=== PATIENT | male | born 1985 | race Caucasian/White ===

== ENCOUNTER 2017-04-14 20:43 | Inpatient (IN) | payer OTHER ==
--- NOTE | ~2017-04-14 | HP ---
History And Physical [address] [place]. [address] NAME: SWETA VERGARA : 87 STATUS : ADM IN [facility]#: [id number] AGE: 31 ADM/REG DATE : 04/15/17 MR#: [id number] REPORT SERV DATE: 04/15/17 DICTATED BY: NITESH FUNEZ DATE: 04/15/17 REPORT STATUS : Draft TRANSCRIBED BY: MODJaved DATE: 04/15/17 DATE OF ADMISSION: 04/15/2017 HISTORY OF PRESENT ILLNESS: The patient is a 31-year-old white male who has been having almost continuous chest pain over the past three months. The chest pain is substernal and not associated with physical exertion. The patient apparently states his pain got worse yesterday and he has some associated nausea and sweating with it. He presented to the emergency room at [facility] where cardiac workup was unremarkable. At the time of this admission, the patient did not tell the emergency room physician that he had a cardiac catheterization at [facility], [place] just a year ago which was normal. Cardiac enzymes remain normal and EKG is unremarkable. PAST MEDICAL HISTORY: Remarkable for cholecystectomy, obesity, and sleep apnea. SOCIAL HISTORY: The patient does not smoke. FAMILY HISTORY: Positive for coronary artery disease (father). REVIEW OF SYSTEMS: The patient denies cough, wheeze, sputum production, vomiting, diarrhea, or dysuria. PHYSICAL EXAMINATION: VITAL SIGNS: Blood pressure is 134/75, heart rate is 88 and regular, respirations 18 and nonlabored. HEENT: Unremarkable. NECK: No jugular venous distention with good carotid upstroke. CHEST: Clear. CARDIOVASCULAR: PMI is not displaced. S1 is normal. S2 is narrowly split. No gallop is present. ABDOMEN: Soft, nontender, with normal bowel sounds. EXTREMITIES: No cyanosis, clubbing, or edema. SKIN: Warm and dry with no pallor or icterus. NEUROPSYCH: The patient is oriented x3 with appropriate affect. LABORATORY DATA: Potassium is 3.9, BUN 12, creatinine 0.91. Hematocrit 35.5. Troponin is less than 0.02. IMPRESSION: 1. Atypical chest pain with a normal cardiac catheterization a year ago at [facility], [place]. 2. Symptomatic sinus tachycardia. 3. Obesity. PLAN: 1. We will check an echocardiogram to evaluate for pericardial effusion and left ventricular function. 2. We will plan to discharge on atenolol and follow up with Dr. Carlos Eduardo Lagos for an History And Physical [address] [address] NAME: SWETA VERGARA : 87 STATUS : ADM IN PAT#: [id number] AGE: 31 ADM/REG DATE : 04/15/17 MR#: [id number] REPORT SERV DATE: 04/15/17 DICTATED BY: NITESH FUNEZ DATE: 04/15/17 REPORT STATUS : Draft TRANSCRIBED BY: MODL DATE: 04/15/17 electrophysiology evaluation if echo is unremarkable. SS/KAYODEL Nitesh Funez M.D., ChristieCOsmani / [id number] CC: iNtesh Funez M.D., ChristieCHAN RODRIGUEZ
[~2017-04-14 20:43] MED LIST: ADVIL PO; ASAB PO; KLONO1 PO; MAXIMUM D3 PO; MULTIVIT/MIN PO; NEUR100 PO; PRILO PO; PROAIR HFA INH; PROBIOTIC GUMMY PO; QUESTRAN PO; TOPXL50 PO; ZANTAC 150 PO; ZOL50 PO; ZYRTEC ALLGY10 MG PO
[2017-04-14] MEDS ORDERED: COZ25 PO (20:48)
[2017-04-14 20:57] LABS: BASOPHILS 0.5 %; BASOPHILS ABSOLUTE 0.03 10/3/uL (0.0-0.16); ER CBC TAT 0 Hrs 05 Mins; HEMATOCRIT 38.5 % (40.0-51.0); HEMOGLOBIN 13.4 g/dL (13.6-17.8); IMMATURE GRANULOCYTES 0.2 %; IMMATURE GRANULOCYTES ABSOLUTE 0.01 10/3/uL (0.0-0.11); LYMPHOCYTES 30.6 %; LYMPHOCYTES ABSOLUTE 2.01 10/3/uL (0.67-4.30); MEAN CORPUS HGB CONC 34.8 g/dL (32.0-36.0); MEAN CORPUSCULAR HEMOGLOB 32.6 pg (26.0-34.0); MEAN CORPUSCULAR VOLUME 93.7 fL (80-100); MEAN PLATELET VOLUME 9.2 fL (9.2-13.0); MONOCYTES 6.6 %; MONOCYTES ABSOLUTE 0.43 10/3/uL (0.21-1.20); NEUTROPHILS 59.1 %; NEUTROPHILS ABSOLUTE 3.88 10/3/uL (2.02-8.40); PLATELET COUNT 190 10/3/uL (150-400); RBC DISTRIBUTION WIDTH 12.9 % (12.0-16.0); RED CELL COUNT 4.11 10/6/uL (4.7-6.1); WHITE BLOOD CELLS 6.6 10/3/uL (4.5-10.5)
[2017-04-14 20:58] LABS: MANUAL DIFF NO %
[2017-04-14 21:05] LABS: PARTIAL THROMBO TIME 29.1 SEC (22.5-37.2); PROTIME (NOT ORD) 13.5 SEC (12.0-14.5)
[2017-04-14 21:14] LABS: ACETAMINOPHEN LEVEL (TYLENOL) < 2.0 MCG/ML (10.0-20.0); ALBUMIN 3.4 G/DL (3.5-5.0); ALCOHOL < 10 MG/DL (0); ALKALINE PHOSPHATASE 93 U/L (45-117); BUN (BLOOD UREA NITROGEN) 12 MG/DL (6-23); CALCIUM, SERUM 8.2 MG/DL (8.5-10.4); CHEST PAIN PROFILE TAT 0 Hrs 22 Mins; CHLORIDE, SERUM 112 MMOL/L (96-112); CO2 (CARBON DIOXIDE) 25 MMOL/L (24-34); CREATININE 0.91 MG/DL (0.70-1.30); DIRECT BILIRUBIN < 0.1 MG/DL (0.0-0.4); GFR AFRICAN AMERICAN 131 ML/MIN (>=60); GFR NON AFRICAN AMERICAN 113 ML/MIN (>=60); GLUCOSE, SERUM 129 MG/DL (60-99); POTASSIUM, SERUM 3.9 MMOL/L (3.5-5.3); SGOT(AST) 14 U/L (5-40); SGPT(ALT) 33 U/L (5-65); SODIUM, SERUM 144 MMOL/L (135-148); TOTAL BILIRUBIN 0.1 MG/DL (0-1.2); TOTAL PROTEIN 6.8 G/DL (6.0-8.5); TROPONIN I <0.02 NG/ML (<0.05)
[2017-04-15 06:49] LABS: BASOPHILS 0.3 %; BASOPHILS ABSOLUTE 0.02 10/3/uL (0.0-0.16); EOSINOPHILS 4.1 %; EOSINOPHILS ABSOLUTE 0.27 10/3/uL (0.0-0.53); HEMATOCRIT 39.1 % (40.0-51.0); HEMOGLOBIN 13.5 g/dL (13.6-17.8); IMMATURE GRANULOCYTES 0.2 %; IMMATURE GRANULOCYTES ABSOLUTE 0.01 10/3/uL (0.0-0.11); LYMPHOCYTES 44.1 %; MEAN CORPUS HGB CONC 34.5 g/dL (32.0-36.0); MEAN CORPUSCULAR HEMOGLOB 32.8 pg (26.0-34.0); MEAN CORPUSCULAR VOLUME 94.9 fL (80-100); MONOCYTES 6.8 %; MONOCYTES ABSOLUTE 0.45 10/3/uL (0.21-1.20); NEUTROPHILS 44.5 %; NEUTROPHILS ABSOLUTE 2.92 10/3/uL (2.02-8.40); PLATELET COUNT 193 10/3/uL (150-400); RBC DISTRIBUTION WIDTH 12.9 % (12.0-16.0); RED CELL COUNT 4.12 10/6/uL (4.7-6.1); WHITE BLOOD CELLS 6.6 10/3/uL (4.5-10.5)
[2017-04-15 06:50] LABS: MANUAL DIFF NO %
[2017-04-15 07:08] LABS: CHOL/HDL RATIO(NOT ORDER) 4.1 (0-5); CHOLESTEROL 198 MG/DL (< 200); HDL CHOLESTEROL 48 MG/DL (> 39); LDL CHOLESTEROL 128 MG/DL (< 130); NON-HDL CHOLESTEROL 150 MG/DL (< 160); SGPT(ALT) 32 U/L (5-65); TRIGLYCERIDE 111 MG/DL (< 150); TROPONIN I <0.02 NG/ML (<0.05)
[2017-04-15] MEDS ORDERED: ATEN50 PO (18:37)
== END 2017-04-15 19:09 | disposition home or self-care (01) | DRG 313 ==
LOC: ER 20:43 → 5NO 04-15 00:23
PROVIDERS: Emergency Medicine
DX: R07.9 Chest pain, unspecified (principal); Z68.43 Body mass index [BMI] 50.0-59.9, adult; R00.0 Tachycardia, unspecified; Z90.49 Acquired absence of other specified parts of digestive tract; E66.9 Obesity, unspecified; E66.01 Morbid (severe) obesity due to excess calories
CPT/HCPCS: 71010; 80048; 80061; 80076; 80307; 82962; 83605; 83735; 83880; 84460; 84484; 85025; 85610; 85730; 93005; 96374; 96375; 99285; A9270-GY; C8929; J2550; Q9957